=== PATIENT | female | born 1980 | race African-American/Black ===

== ENCOUNTER 2022-03-02 04:30 | Emergency (ER) | payer SELFPAY ==
[~2022-03-02] VITALS: Ht 152.4 cm; Wt 63.5 kg
[2022-03-02 04:54] VITALS: BP 125/82
[2022-03-02] MEDS ORDERED: AMOX875T2 PO (05:09)
[2022-03-02] MEDS ORDERED: HYDR-4275 PO (05:09)
== END 2022-03-02 05:16 | disposition home or self-care (01) ==
LOC: ER 04:34
DX: K01.1 Impacted teeth (principal)